=== PATIENT | female | born 1965 | race American Indian/Alaskan Native ===

== ENCOUNTER 2021-06-12 17:04 | Emergency (ER) | payer OTHER ==
[2021-06-12] MEDS ORDERED: ONDANSETRON 4 MG ODT TAB PO STA (22:29)
[2021-06-12] MEDS ORDERED: HYDROcodone/ACETAMINOPHEN 5-325 MG TAB PO STA (22:29)
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
[2021-06-13 03:19] VITALS: BP 157/82
== END 2021-06-13 11:01 | disposition home or self-care (01) ==
LOC: ED 17:04
DX: S16.1XXA Strain of muscle, fascia and tendon at neck level, initial encounter (principal); V89.2XXA Person injured in unspecified motor-vehicle accident, traffic, initial encounter; Y93.89 Activity, other specified; Y92.89 Other specified places as the place of occurrence of the external cause; Y99.8 Other external cause status
CPT/HCPCS: 72040; 72072; 99283; J3490; Q0162